=== PATIENT | male | born 1945 | race Caucasian/White ===

== ENCOUNTER 2019-12-20 09:56 | Emergency (ER) | payer MEDICARE, MEDICAID ==
--- NOTE | 2019-12-20 10:45 | RAD ---
EXAM: 3 views of the right foot HISTORY: Foot pain for one week COMPARISON: None FINDINGS: 3 views of the right foot shows no evidence of acute fracture or dislocation. No soft tissu e swelling is seen. No degenerative changes are present. IMPRESSION: No evidence of acute osseous abnormality.
== END 2019-12-20 11:20 | disposition home or self-care (01) ==
LOC: MADERS 09:56
DX: S93.601A Unspecified sprain of right foot, initial encounter (principal); S93.401A Sprain of unspecified ligament of right ankle, initial encounter; E11.9 Type 2 diabetes mellitus without complications; E78.5 Hyperlipidemia, unspecified; I10 Essential (primary) hypertension; W18.30XA Fall on same level, unspecified, initial encounter
CPT/HCPCS: 36416